=== PATIENT | male | born 1990 | race Caucasian/White ===

== ENCOUNTER 2016-07-02 11:54 | Emergency (ER) | payer OTHER ==
[~2016-07-02] VITALS: Ht 182.9 cm; Wt 97.7 kg
[2016-07-02 12:19] VITALS: BP 132/83; PULSE 85; RESP 18; O2SAT 98
--- NOTE | 2016-07-02 12:50 | ED.REPORT ---
HPI-General Illness Date of Service Jul 02, 2016 ED Provider: Syed Hunter MD 26 year old male with a history of Hepatitis C presents to the ER accompanied by his girlfriend complaining of a week of throbbing headache and bilateral flank pain. Associated symptoms include nausea, vomiting, productive cough with green sputum, subjective fever, abdominal pain elicited by eating, and intermittent diarrhea that has been resolved the past two days. Patient denies hematemesis, dysuria, and hematuria. Girlfriend reports being ill with similar symptoms recently. Nursing Notes Stated Complaint: NAUSEA,VOMITING Chief Complaint: Headache Nursing Notes Reviewed: Yes Allergies: Coded Allergies: No Known Allergies (Unverified , 07/02/16) Scheduled Amoxicillin/Clav K 875-125 mg (Augmentin 875-125 mg) 1 Each Tablet 1 TABLET PO BID Scheduled PRN Ondansetron ODT (Zofran ODT) 4 Mg Tablet 4 MG PO Q4H PRN PRN For Nausea General Time Seen by MD: 12:49 Chief Complaint Headache Hx Obtained From: Patient Arrived By: Walk-in Sudden in Onset?: No Onset Occurred: 1 week ago Symptom Duration: Since onset Location: : Head Quality: Painful, Throbbing Severity: Current: Moderate Severity: Maximum: Moderate Associated with: Reports: Abdominal pain, Cough, Fever, Nausea, Vomiting, Denies: Chest pain Past Medical History Past Medical History Hepatitis C Smoking History Unknown if Ever Smoker Social History Other Social History: Good social support Ambulatory Status Independent Review of Systems Full Review of Systems Constitutional: Reports: Fever (Subjective), Denies: Chills Respiratory: Reports: Prod cough, green, Denies: Shortness of breath Cardiovascular: Denies: Chest pain GI: Reports: Abdominal pain, Diarrhea, Nausea, Vomiting, Denies: Bloody/tarry stool, Hematemesis, Hematochezia, Melena Male: Reports Flank pain, Denies Dysuria, Denies Hematuria Complete sys rev & neg: except as marked. Physical Exam Vital Signs Vital Signs Date Time Temp Pulse Resp B/P Pulse Ox O2 Delivery O2 Flow Rate FiO2 07/02/16 15:16 35.8 84 15 118/81 100 Room Air 07/02/16 12:19 36.2 85 18 132/83 98 Room Air Initial VS: Reviewed Skin: Warm, Dry, No cyanosis Neurologic: Alert, Oriented, Nonfocal Psychiatric: Mood/affect normal, Behavior normal, Normal thought content General/Constitutional: Awake, Alert, Well developed, Well nourished, Cooperative Head / Eyes: Atraumatic, Normocephalic ENT: Airway patent, Mucous membranes moist, Pharynx NL Mild right maxillary sinus tenderness Neck: No meningismus, Full range of motion, No midline vertebral tend, No tracheal deviation Respiratory / Chest: Breath sounds NL, No respiratory distress, No rales, No rhonchi, No wheezing Abdomen: Soft, Non-tender, No guarding, No rebound, BS normoactive, No distention, No hernia, No pulsatile mass Back: Inspection NL, Painless range of motion, Non-tender, No CVA tenderness Interpretation & Diagnostics Lab Results Interpretation Test 07/02/16 14:05 Hold Purple Top Tube Received (Received) Hold Blue Top Tube Received (Received) Hold [place] Top Tube Received (Received) Re-Eval/Medical Decision Med Decision/Clinical Course 26-year-old male with myalgias, nausea vomiting, diarrhea times several days. Also with cough productive green sputum. Influenza negative. Vital signs stable. Exam reassuring as above. Tender right maxillary sinus. We will treat with Augmentin for sinusitis. Zofran as needed for nausea vomiting. He had no abdominal pain nausea vomiting here. Return precautions given. Time of Eval: 13:44 Re-Evaluation/Progress Note: Discussed plan to discharge. Patient is amenable to the plan. Return precautions given. All other questions addressed. Counseled Regarding: Diagnosis, Lab results, Need for follow-up, When/why to return to ED Discharge & Departure Primary Impression: Sinusitis Additional Impression: Viral illness Disposition: Home Discharge Condition All VS Reviewed: Yes Condition: Stable Patient Instructions: Sinusitis (DC) Additional Instructions: Go home and rest. Drink plenty of fluids. Return to the ER if you develop high fever, chest pain, shortness of breath, or any other worsening or concerning symptoms. Referrals: Warren Argueta MD (Family) Scribe Attestation Portions of this note were transcribed by Rhys Ramirez. I, Dr. Hunter, personally performed the history, physical exam and medical decision-making; I reviewed and confirmed the accuracy of the information in the transcribed note. Signed by: Rashad Loza, 07/02/2016 - 14:53 copies to: Warren Argueta MD, Ben M MD Jul 02, 2016 12:50 RHYS RAMIREZ Jul 02, 2016 13:38
[2016-07-02] MEDS ORDERED: Ketorolac 30 mg/mL 2 mL Inj IM ONE (14:00)
[2016-07-02] MEDS ORDERED: ONDA4TAB9 PO (14:45)
[2016-07-02] MEDS ORDERED: AMOX-366 PO (14:45)
[2016-07-02 15:16] VITALS: BP 118/81; PULSE 84; RESP 15; O2SAT 100
== END 2016-07-02 14:56 | disposition home or self-care (01) ==
LOC: SED 11:54
DX: J32.9 Chronic sinusitis, unspecified (principal); B34.9 Viral infection, unspecified; R51 Headache; R10.9 Unspecified abdominal pain; R11.2 Nausea with vomiting, unspecified; R05 Cough; R19.7 Diarrhea, unspecified; R50.9 Fever, unspecified; Z86.19 Personal history of other infectious and parasitic diseases
CPT/HCPCS: 87804; 96372; 99284; J1885